=== PATIENT | female | born 1995 | race Asian ===

== ENCOUNTER 2017-03-24 23:18 | Emergency (ER) | payer SELFPAY ==
[~2017-03-24] VITALS: Ht 165.1 cm; Wt 59.1 kg
[~2017-03-24 23:18] MED LIST: BIRTH CONTROL MED PO
[2017-03-24 23:21] VITALS: TEMP 98
[2017-03-24 23:38] LABS: BASO % 0.1 % (0.0-2.0); EOS % 0.1 % (0-4.0); GRAN # 7.6 (1.4-6.5); GRAN % 69.8 % (42.2-75.2); HEMATOCRIT 42.4 % (37.0-47.0); HEMOGLOBIN 14.3 g/dl (12.5-16.0); LYMPH # 2.7 (1.2-3.4); LYMPH % 25.2 % (20.0-51.0); MEAN CELL VOLUME 90 fl (80.0-100.0); MEAN CORPUSCULAR HEMOGLOBIN 30 pg (27.0-31.0); MEAN CORPUSCULAR HGB CONC 34 g/dl (33.0-37.0); MEAN PLATELET VOLUME 9.6 fl (7.4-10.4); MONO # 0.5 (0.1-0.6); MONO % 4.4 % (1.7-9.3); PLATELET COUNT 316 K/mm3 (130-400); WHITE BLOOD COUNT 10.9 K/mm3 (4.8-10.8)
[2017-03-24 23:50] LABS: ADJUSTED CALCIUM 8.9 mg/dL (8.4-10.2); ALANINE AMINOTRANSFERASE 29 U/L (9-52); ALCOHOL(ethanol),MEDICAL 166 mg/dL; ALKALINE PHOSPHATASE 47 U/L (50-136); ANION GAP 18 mmol/L (7-16); BILIRUBIN,TOTAL 0.6 mg/dL (0.0-1.0); BLOOD UREA NITROGEN 10 mg/dL (7-17); CALCIUM 9.7 mg/dL (8.4-10.2); CARBON DIOXIDE 18 mmol/L (22-30); CHLORIDE 104 mmol/L (98-107); CREATININE, serum 0.64 mg/dL (0.52-1.25); GLUCOSE 106 mg/dL (74-106); POTASSIUM 3.5 mmol/L (3.4-5.0); SODIUM 140 mmol/L (137-145); TOTAL PROTEIN 8.2 gm/dL (6.4-8.2)
[2017-03-24 23:51] LABS: ACETAMINOPHEN < 10 ug/mL (10-30); SALICYLATE < 1.0 mg/dL
[2017-03-25 00:54] LABS: AMPHETAMINE URINE NEGATIVE; BARBITURATES URINE NEGATIVE; BENZODIAZEPINES URINE NEGATIVE; BUPRENORPHINE URINE NEGATIVE; METHADONE URINE NEGATIVE; OPIATES URINE POSITIVE; OXYCODONE URINE NEGATIVE; PHENCYCLIDINE URINE NEGATIVE; PROPOXYPHENE URINE NEGATIVE; THC CANNABINOIDS URINE NEGATIVE; TRICYCLIC ANTIDEPRESS URINE NEGATIVE
[2017-03-25 03:30] VITALS: BP 126/81
[2017-03-25 04:34] VITALS: PULSE 62
== END 2017-03-25 04:35 | disposition home or self-care (01) ==
LOC: COL.ER 23:18
PROVIDERS: Family Medicine
DX: F32.9 Major depressive disorder, single episode, unspecified (principal); F43.20 Adjustment disorder, unspecified; S61.512A Laceration without foreign body of left wrist, initial encounter; T40.2X2A Poisoning by other opioids, intentional self-harm, initial encounter; T45.0X2A Poisoning by antiallergic and antiemetic drugs, intentional self-harm, initial encounter; K21.9 Gastro-esophageal reflux disease without esophagitis; X78.9XXA Intentional self-harm by unspecified sharp object, initial encounter

== ENCOUNTER 2017-03-30 13:08 | Emergency (ER) | payer OTHER ==
[~2017-03-30] VITALS: Ht 157.5 cm; Wt 56.8 kg
[2017-03-30 13:10] VITALS: BP 105/65; PULSE 72; TEMP 97.5
== END 2017-03-30 13:55 | disposition home or self-care (01) ==
LOC: COL.ER 13:08
DX: S51.811A Laceration without foreign body of right forearm, initial encounter (principal); X58.XXXA Exposure to other specified factors, initial encounter

== ENCOUNTER 2017-04-02 14:37 | Emergency (ER) | payer OTHER ==
[2017-04-02 14:40] VITALS: BP 108/74; PULSE 83; TEMP 98.5
== END 2017-04-02 14:55 | disposition home or self-care (01) ==
LOC: COL.ER 14:37
DX: S51.812D Laceration without foreign body of left forearm, subsequent encounter (principal); X58.XXXD Exposure to other specified factors, subsequent encounter

== ENCOUNTER 2017-04-05 19:30 | Emergency (ER) | payer OTHER ==
[~2017-04-05] VITALS: Ht 157.5 cm; Wt 53.2 kg
[2017-04-05 19:35] VITALS: TEMP 99.1
[2017-04-05 20:30] LABS: ALANINE AMINOTRANSFERASE 21 U/L (9-52); ALBUMIN 4.9 gm/dL (3.5-5.0); ALKALINE PHOSPHATASE 43 U/L (50-136); ANION GAP 14 mmol/L (7-16); BASO % 0.1 % (0.0-2.0); BLOOD UREA NITROGEN 8 mg/dL (7-17); CALCIUM 10.7 mg/dL (8.4-10.2); CARBON DIOXIDE 17 mmol/L (22-30); CHLORIDE 107 mmol/L (98-107); CREATININE, serum 0.61 mg/dL (0.52-1.25); EOS % 0.4 % (0-4.0); GLUCOSE 76 mg/dL (74-106); GRAN # 4.5 (1.4-6.5); GRAN % 64.5 % (42.2-75.2); HEMATOCRIT 40.5 % (37.0-47.0); HEMOGLOBIN 13.7 g/dl (12.5-16.0); LYMPH # 2.1 (1.2-3.4); LYMPH % 29.4 % (20.0-51.0); MEAN CELL VOLUME 90 fl (80.0-100.0); MEAN CORPUSCULAR HEMOGLOBIN 30 pg (27.0-31.0); MEAN CORPUSCULAR HGB CONC 34 g/dl (33.0-37.0); MEAN PLATELET VOLUME 10.5 fl (7.4-10.4); MONO # 0.4 (0.1-0.6); MONO % 5.3 % (1.7-9.3); PLATELET COUNT 238 K/mm3 (130-400); POTASSIUM 3.6 mmol/L (3.4-5.0); RED BLOOD COUNT 4.51 M/mm3 (4.10-5.30); SODIUM 138 mmol/L (137-145); TOTAL PROTEIN 8.1 gm/dL (6.4-8.2)
[2017-04-05 20:31] LABS: ACETAMINOPHEN < 10 ug/mL (10-30); ALCOHOL(ethanol),MEDICAL < 10 mg/dL; SALICYLATE < 1.0 mg/dL
[2017-04-05 21:21] LABS: AMPHETAMINE URINE NEGATIVE; BARBITURATES URINE NEGATIVE; BENZODIAZEPINES URINE NEGATIVE; BUPRENORPHINE URINE NEGATIVE; METHADONE URINE NEGATIVE; OPIATES URINE NEGATIVE; OXYCODONE URINE NEGATIVE; PHENCYCLIDINE URINE NEGATIVE; PROPOXYPHENE URINE NEGATIVE; THC CANNABINOIDS URINE NEGATIVE; TRICYCLIC ANTIDEPRESS URINE NEGATIVE
[2017-04-05 23:38] VITALS: BP 121/87; PULSE 84
== END 2017-04-05 23:50 | disposition home or self-care (01) ==
LOC: COL.ER 19:30
PROVIDERS: Emergency Medicine
DX: F32.9 Major depressive disorder, single episode, unspecified (principal)